=== PATIENT | male | born 1960 | race Asian ===

== ENCOUNTER 2018-12-12 23:33 | Inpatient (IN) | payer BC ==
[~2018-12-12] VITALS: Ht 175.3 cm; Wt 88.5 kg
[2018-12-13 01:30] VITALS: BP 121/77
--- NOTE | 2018-12-13 01:30 | NUR ---
NURSE NOTES: Got report from Vi ROWLEY over the phone from [facility] on [address]. Pt arrived via EMR. Initial Assessment done. Pt in stable condition. Pt A+O x 3-4. Slow speech noted. VSS. Satting 96% on room air. Pt on secured entrance monitor running normal sinus rhythm. Denies any pain and denies any n/v. No s/s of distress or discomfort noted. Pt resting in bed comfortably. Bed in low and locked position, call light wtihin reach, bedside table within reach. Continue to monitor. Addendum: 12/13/18 at 0206 by Nacho De La Vega RN Dr. Miguel valentino awaiting orders Addendum: 12/13/18 at 0454 by Nacho De La Vega RN [id number]: Dr. Rivera said he will put in orders himself and to just wait. Continue to monitor. Addendum: 12/13/18 at 0733 by Nacho De La Vega RN 89: Dr. Rivera called and gave me orders. Orders placed.
[2018-12-13 04:06] VITALS: BP 112/74
[2018-12-13] MEDS ORDERED: D5 1/2NS 1,000 ML IV SCH (07:15)
--- NOTE | 2018-12-13 07:19 | NUR ---
CASE MANAGEMENT:REVIEW 58 YR OLD MALE TRANSFERRED FROM [place] SI: ALTERED MENTAL STATUS 97.8 66 18 121/77 96% ON RA IS: IVF@75/HR HEPARIN SQ Q12 MRI BRAIN PT EVAL URINE CX : DIRECTLY ADMITTED TO TELEMETRY PLAN: NEURO CHECKS Q4HRS INTERQUAL CRITERIA MET
--- NOTE | 2018-12-13 07:20 | NUR ---
HAND-OFF: Report given to Gilmar ROWLEY. Endorsed plan of care.
--- NOTE | 2018-12-13 07:21 | NUR ---
NURSE NOTES: Pt alert and oriented x2 with no s/s of acute distress. IV sites asymptomatic and patent, on saline lock. Bed in lowest position, call light and belongings within reach. Bed alarm on.
[2018-12-13 08:00] VITALS: BP 114/73
[2018-12-13 08:39] LABS: BASOPHILS % (AUTO) 0.5 % (0.0-2.0); EOSINOPHILS % (AUTO) 1.7 % (0.0-3.0); HEMATOCRIT 39.6 % (42.0-52.0); HEMOGLOBIN 13.6 G/DL (14.2-18.0); LYMPHOCYTES % (AUTO) 32.8 % (20.0-45.0); MEAN CORPUSCULAR VOLUME 91 FL (80-99); MONOCYTES % (AUTO) 4.6 % (1.0-10.0); NEUTROPHILS % (AUTO) 60.4 % (45.0-75.0); PLATELET COUNT 172 K/UL (150-450); RED BLOOD COUNT 4.36 M/UL (4.70-6.10); RED CELL DISTRIBUTION WIDTH 11.5 % (11.6-14.8)
[2018-12-13] MEDS ORDERED: Heparin 5000 units/ml inj SUBQ SCH (09:00)
[2018-12-13 09:02] LABS: ALANINE AMINOTRANSFERASE 34 U/L (12-78); ALBUMIN 3.6 G/DL (3.4-5.0); ALBUMIN/GLOBULIN RATIO 0.9 (1.0-2.7); ALKALINE PHOSPHATASE 63 U/L (46-116); ANION GAP 8 mmol/L (5-15); ASPARTATE AMINO TRANSFERASE 25 U/L (15-37); BILIRUBIN,TOTAL 1.3 MG/DL (0.2-1.0); BLOOD UREA NITROGEN 13 mg/dL (7-18); CALCIUM 8.9 MG/DL (8.5-10.1); CARBON DIOXIDE 29 MMOL/L (21-32); CHLORIDE 104 MMOL/L (98-107); CREATININE 0.9 MG/DL (0.55-1.30); PHOSPHORUS 2.6 MG/DL (2.5-4.9); POTASSIUM 3.6 MMOL/L (3.5-5.1); SODIUM 141 MMOL/L (136-145)
[2018-12-13 09:03] LABS: BILIRUBIN,DIRECT 0.2 MG/DL (0.0-0.3)
--- NOTE | 2018-12-13 10:07 | NUR ---
*-* INSURANCE *-* REVIEWS AND CLINICALS HAVE BEEN FAXED TO: [facility] F:[phone] GENERIC FAX # Addendum: 12/13/18 at 1155 by ARVIN MONTOYA CM [facility]:[place] P:[phone] REF# [id number]
--- NOTE | 2018-12-13 10:14 | NUR ---
NURSE NOTES: Pt sitting up eating breakfast, able to articulate name, place, and time. No acute s/s of distress.
--- NOTE | 2018-12-13 10:42 | Consultation ---
History of Present Illness General Date patient seen: Dec 13, 2018 Present Illness HPI 58 year old male without any PMHx was taken to [facility] with CC of altered mental status. Pt apparently didn't show up for his job and therefore police were summoned to his residence where he was found lethargic. He was taken to [facility] where a Ct of Head was negative. He is transferred to [facility] for further treatment. Pt stated the night prior to hospitalization he had some ice cream with cannabis. That was the first time he ingested the cannabis in his life. Allergies: Coded Allergies: NO KNOWN DRUG ALLERGIES (Verified Allergy, Unknown, 12/13/18) Patient History Healthcare decision maker Resuscitation status Full Code Advanced Directive on File Past Medical/Surgical History Past Medical/Surgical History: (1) No pertinent past medical history Review of Systems All Other Systems: negative except mentioned in HPI Physical Exam General Appearance: WD/WN Lines, tubes and drains: peripheral, central line HEENT: normocephalic, atraumatic Neck: non-tender, normal alignment Respiratory/Chest: chest wall non-tender, lungs clear Cardiovascular/Chest: normal peripheral pulses Abdomen: normal bowel sounds, hyperactive bowel sounds Genitourinary/Rectal: normal genital exam Last 24 Hour Vital Signs Date Time Temp Pulse Resp B/P (MAP) Pulse Ox O2 Delivery O2 Flow Rate FiO2 12/13/18 08:00 97.4 69 18 114/73 (87) 97 12/13/18 04:15 79 12/13/18 04:06 98.1 65 18 112/74 (87) 97 12/13/18 02:43 Room Air 12/13/18 01:30 97.8 66 18 121/77 (92) 96 12/13/18 01:30 66 Intake and Output 12/12/18 12/13/18 19:00 07:00 # Voids 2 Laboratory Tests Test 12/13/18 08:15 White Blood Count 8.0 K/UL (4.8-10.8) Red Blood Count 4.36 M/UL (4.70-6.10) L Hemoglobin 13.6 G/DL (14.2-18.0) L Hematocrit 39.6 % (42.0-52.0) L Mean Corpuscular Volume 91 FL (80-99) Mean Corpuscular Hemoglobin 31.1 PG (27.0-31.0) H Mean Corpuscular Hemoglobin Concent 34.2 G/DL (32.0-36.0) Red Cell Distribution Width 11.5 % (11.6-14.8) L Platelet Count 172 K/UL (150-450) Mean Platelet Volume 5.2 FL (6.5-10.1) L Neutrophils (%) (Auto) 60.4 % (45.0-75.0) Lymphocytes (%) (Auto) 32.8 % (20.0-45.0) Monocytes (%) (Auto) 4.6 % (1.0-10.0) Eosinophils (%) (Auto) 1.7 % (0.0-3.0) Basophils (%) (Auto) 0.5 % (0.0-2.0) Sodium Level 141 MMOL/L (136-145) Potassium Level 3.6 MMOL/L (3.5-5.1) Chloride Level 104 MMOL/L (98-107) Carbon Dioxide Level 29 MMOL/L (21-32) Anion Gap 8 mmol/L (5-15) Blood Urea Nitrogen 13 mg/dL (7-18) Creatinine 0.9 MG/DL (0.55-1.30) Estimat Glomerular Filtration Rate > 60 mL/min (>60) Glucose Level 117 MG/DL (74-106) H Calcium Level 8.9 MG/DL (8.5-10.1) Phosphorus Level 2.6 MG/DL (2.5-4.9) Magnesium Level 2.2 MG/DL (1.8-2.4) Total Bilirubin 1.3 MG/DL (0.2-1.0) H Direct Bilirubin 0.2 MG/DL (0.0-0.3) Aspartate Amino Transf (AST/SGOT) 25 U/L (15-37) Alanine Aminotransferase (ALT/SGPT) 34 U/L (12-78) Alkaline Phosphatase 63 U/L (46-116) Troponin I 0.000 ng/mL (0.000-0.056) Total Protein 7.6 G/DL (6.4-8.2) Albumin 3.6 G/DL (3.4-5.0) Globulin 4.0 g/dL Albumin/Globulin Ratio 0.9 (1.0-2.7) L Height (Feet): 5 Height (Inches): 9.00 Weight (Pounds): 195 Medications Current Medications Medications (Trade) Dose Ordered Sig/Lora Route PRN Reason Start Time Stop Time Status Last Admin Dose Admin Acetaminophen (Tylenol) 650 mg Q6H PRN ORAL Mild Pain/Temp > 100.5 12/13/18 06:45 01/12/19 06:44 Dextrose/Sodium Chloride 1,000 ml @ 75 mls/hr [id number] IV 12/13/18 07:15 01/12/19 07:14 12/13/18 09:35 Heparin Sodium (Porcine) (Heparin 5000 units/ml) 5,000 units EVERY 12 HOURS SUBQ 12/13/18 09:00 01/12/19 08:59 Ondansetron HCl (Zofran) 4 mg Q4H PRN IVP Nausea & Vomiting 12/13/18 06:45 01/12/19 06:44 Assessment/Plan Problem List: (1) Acute metabolic encephalopathy ICD Codes: G93.41 - Metabolic encephalopathy SNOMED: 03552623, 724517967 (2) Cannabis overdose ICD Codes: T40.7X1A - Poisoning by cannabis (derivatives), accidental ( unintentional), initial encounter SNOMED: 747798535 Assessment/Plan Pt improved significantly. doing better check electrolytes CT from [place] reviewed pt is asymptomatic. Venkatesh Cardona MD Dec 13, 2018 10:42
[2018-12-13 12:00] VITALS: BP 125/77
--- NOTE | 2018-12-13 14:17 | NUR ---
NURSE NOTES: Pt discharged per Dr. Cardona's orders to home with home meds. IV site d/tena and patient wristband removed. Belongings with patient upon discharge - shorts, shirt, underwear, house keys. quality assurance monitor body off. Pt in safe condition. No wounds upon discharge. Picked up by friend - John Gonzalez - in private vehicle.
--- NOTE | 2018-12-13 16:37 | NUR ---
P.T Note: P.T evaluation completed. Pt is currently at baseline function and does not require skilled P.T services. CT P.T services. Thank you for this referral. Addendum: 12/13/18 at 1637 by NASIR MURRAY PT Amended: Links added.
--- NOTE | 2018-12-15 13:22 | Discharge Summary ---
Discharge Summary Discharge Summary _ DATE OF ADMISSION: 12/13/2018 DATE OF DISCHARGE: 12/13/2018 DISCHARGED BY: Dr. Cardona REASON FOR ADMISSION: 58 years old male without significant past medical history, was taken to [facility] with chief complaint of altered mental status. Patient did not show to his job in the morning. Police subsequently was summoned to his residence , where he was found to be lethargic. Patient was taken to [facility] for further evaluation. Laboratory y workup revealed no leukocytosis, stable hemoglobin hematocrit. Glucose 121. Stable electrolytes. Troponin negative. Ammonia 55. Total bilirubin 1.5. Urine toxicology screen was positive for cannabinoids. CT of the head revealed no evidence of acute intracranial pathology. Abdominal ultrasound revealed increased echogenicity of the liver, most likely due to hepatic steatosis. Liver surface was smooth, without evidence of cirrhosis. Main portal vein was patent. No ascites. Neuro exam revealed no focal neurological deficit or lateralizing symptoms. Patient did appear cognitive slow with sluggish pupils and asterixis. Etiology of symptoms was toxic metabolic due to THC intoxication. Low suspicion for ischemic cerebral process, given nonfocal exam and unremarkable CT findings. Patient admitted to regular marijuana use. Patient reported that the night prior to hospitalization , he had ice cream with cannabis. Patient was transferred to to [facility] for further management due to insurance reason. CONSULTANTS: pulmonary Dr. Cardona HOSPITAL COURSE: Patient admitted to telemetry floor. Upon evaluation vital signs were stable. Laboratory workup revealed no leukocytosis, stable hemoglobin and hematocrit, stable electrolytes and renal parameters glucose 117 he had Stable LFT. Troponin negative 9. Albumin 3.6 Patient was completely asymptomatic and fully awake. DVT prophylaxis provided. Supportive care provided. Patient was stable for discharge home. Patient was counseled to avoid illicit street drugs and avoid overdose with cannabis. Due to rapid and unexpected improvement patient condition patient was discharged in 1 day FINAL DIAGNOSES: Acute metabolic encephalopathy Cannabis overdose/intoxication DISCHARGE MEDICATIONS: None DISCHARGE INSTRUCTIONS: Patient was discharged home . Follow up with primary care provider. I have been assigned to dictate discharge summary for this account. I was not involved in the patient's management. Raven Sifuentes NP Dec 15, 2018 13:22
== END 2018-12-13 13:49 | disposition home or self-care (01) | DRG 917 ==
LOC: 2E 12-13 00:58
DX: T40.7X1A Poisoning by cannabis (derivatives), accidental (unintentional), initial encounter (principal); G93.41 Metabolic encephalopathy; Y92.009 Unspecified place in unspecified non-institutional (private) residence as the place of occurrence of the external cause
CPT/HCPCS: 36415; 80053; 82248; 83735; 84100; 84484; 85025